=== PATIENT | female | born 1965 ===

== ENCOUNTER 2018-11-20 18:18 | Emergency (ER) | payer SELFPAY ==
[2018-11-20 19:13] VITALS: O2SAT 100
--- NOTE | 2018-11-20 20:51 | ED PDOC ---
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 Patient states that when she is walking it feels like something is coming out, and states that the pain radiates to the suprapubic area. Patient is unsure if there is discharge. Patient denies having vaginal bleeding, urinary symptoms, fevers, nausea, vomiting, diarrhea, back pain, or seeing her MAIL MESSENGER for this issue. PMD: Cheyenne Rao MD Abnormal Vaginal Bleeding: No Past Medical History Reviewed: Historical Data, Nursing Documentation, Vital Signs Vital Signs: Last Vital Signs Temp 98.0 F 11/20/18 19:12 Pulse 76 11/20/18 19:12 Resp 16 11/20/18 19:12 BP 133/83 11/20/18 19:12 Pulse Ox 100 11/20/18 19:12 ANYA Report Viewed: Yes Primary Care Provider: Procedure,Nonphys - Medical History PMH: No Chronic Diseases - Family History Family History: States: No Known Family Hx - Social History Current smoker - smoking cessation education provided: No Alcohol: None Drugs: Denies - Home Medications Home Medications: Ambulatory Orders Medication Instructions Recorded Ibuprofen [Motrin Tab] 600 mg PO Q6 #30 tab 11/20/18 - Allergies Allergies/Adverse Reactions: Allergies Allergy/AdvReac Type Severity Reaction Status Date / Time No Known Allergies Allergy Verified 11/20/18 19:12 Review of Systems ROS Statement: Except As Marked, All Systems Reviewed And Found Negative Constitutional: Negative for: Fever Gastrointestinal: Negative for: Nausea, Vomiting Genitourinary Female: Positive for: Pelvic Pain (radiates to suprapubic area). Negative for: Dysuria, Frequency, Incontinence, Vaginal Discharge (patient unsure), Vaginal Bleeding Musculoskeletal: Negative for: Back Pain Physical Exam - Reviewed Nursing Documentation Reviewed: Yes Vital Signs Reviewed: Yes - Physical Exam Appears: Positive for: Well, Non-toxic, No Acute Distress Head Exam: Positive for: ATRAUMATIC, NORMOCEPHALIC Skin: Positive for: Normal Color, Warm, Dry Cardiovascular/Chest: Positive for: Regular Rate, Rhythm Respiratory: Positive for: Normal Breath Sounds Gastrointestinal/Abdominal: Positive for: Normal Exam, Soft. Negative for: Tenderness Pelvic Exam: Positive for: Other (advanced manufacturing engineer: Nurse Addie Horton. scant cottage cheese-like material in vaginal vult). Negative for: No Cerv. Motion Tender, No Masses, Active Bleeding, Lesions, Mass, Tender W/Cervical Motion, Tender Adnexa, Tender Uterus Neurological/Psych: Positive for: Awake, Alert, Oriented (3x) - ECG O2 Sat by Pulse Oximetry: 100 (RA) Pulse Ox Interpretation: Normal Medical Decision Making Medical Decision Makin:05 Initial impression: 53 year old female with non specific pelvic pain; candidiasis. 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 Initial plan: * US transvaginal * diflucan 150 mg PO once * urinalysis * reevaluation 22:00 US transvaginal read and reviewed by radiologist FINDINGS: ENDOMETRIUM: Normal thickness 3.5 mm in AP dimension. UTERUS/CERVIX: The uterus is anteverted in position and appears within normal limits in size measuring 8.9 x 4.6 x 5.1 cm in longitudinal, AP and transverse dimensions respectively. No uterine fibroid or other mass evident. Multiple nabothian cysts are present; the largest of which measures 1.0 x 0.3 cm. RIGHT OVARY: Normal Doppler flow. No abnormal mass. LEFT OVARY: Normal Doppler flow. No abnormal mass. FREE FLUID: No free fluid. IMPRESSION: 1. Several nabothian cysts are noted. 2. Otherwise, unremarkable pelvic ultrasound. 23:10 Spoke with patient, advised to follow [facility]. Patient is is medically stable, and requires no further treatment in the ED at this time. Patient will be discharged home with Rx for motrin. Counseling was provided and all questions were answered regarding diagnosis. There is agreement to discharge plan. Return if symptoms persist or worsen. Scribe Attestation: Documented by Gogo Dooley, acting as a scribe for Edmond Cabrera MD. Provider Scribe Attestation: All medical record entries made by the Scribe were at my direction and personally dictated by me. I have reviewed the chart and agree that the record accurately reflects my personal performance of the history, physical exam, medical decision making, and the department course for this patient. I have also personally directed, reviewed, and agree with the discharge instructions and disposition. Disposition - Clinical Impression Clinical Impression: Candidiasis, Ovarian cyst Counseled Patient/Family Regarding: Studies Performed, Diagnosis, Need For Followup, Rx Given - Disposition [facility]errals[facility] Disposition: Routine/Home Disposition Time: 23:10 Condition: GOOD Prescriptions: Ibuprofen [Motrin Tab] 600 mg PO Q6 #30 tab Instructions: Ovarian Cysts, Yeast Infection (DC) Forms: [employer] (Indonesian) Print Language: ROMANIAN
[2018-11-20 22:41] LABS: URINE BILIRUBIN NEGATIVE (NEGATIVE); URINE BLOOD MODERATE (NEGATIVE); URINE CLARITY CLEAR (Clear); URINE COLOR STRAW (YELLOW); URINE GLUCOSE (UA) NEG (NEGATIVE); URINE LEUKOCYTE ESTERASE NEG Leu/uL (Negative); URINE PROTEIN NEGATIVE (NEGATIVE); URINE UROBILINOGEN 0.2-1.0 mg/dL (0.2-1.0)
[2018-11-20] MEDS ORDERED: Fluconazole 150 MG TAB PO ONE ×2 (23:37→23:44)
[2018-11-20 23:52] VITALS: BP 117/83; PULSE 71; RESP 18; TEMP 97.7
--- NOTE | 2018-11-21 11:05 | US ---
Date of service: 11/20/2018 HISTORY: lower abd pain COMPARISON: None available. TECHNIQUE: Transvaginal pelvic ultrasound was performed. FINDINGS: UTERUS: Measures 8.9 x 5.1 x 4.6 cm. Anteverted, normal in size and appearance. No fibroid or other mass lesion seen. ENDOMETRIUM: Measures 3.5 mm in diameter. Normal in appearance. CERVIX: There are multiple nabothian cysts, the largest measures 10 mm. RIGHT OVARY: Measures 1.8 x 1.3 x 1.0 cm. No solid mass. Normal flow. LEFT OVARY: Measures 2.7 x 1.8 x 1.0 cm. No solid mass. Normal flow. FREE FLUID: No significant free fluid noted. OTHER FINDINGS: None. IMPRESSION: Multiple nabothian cysts, otherwise no sonographic abnormality. A preliminary report was provided by [employer].
== END 2018-11-20 23:49 | disposition home or self-care (01) ==
LOC: H.ER 18:18
DX: B37.9 Candidiasis, unspecified (principal); N83.209 Unspecified ovarian cyst, unspecified side; N88.8 Other specified noninflammatory disorders of cervix uteri